=== PATIENT | male | born 1995 | race African-American/Black ===

== ENCOUNTER 2017-01-16 15:29 | Emergency (ER) | payer SELFPAY ==
[~2017-01-16] VITALS: Ht 175.3 cm; Wt 92.6 kg
[2017-01-16 16:22] LABS: HEMATOCRIT 47.7 % (38.0-50.0); MCH 27.8 PG (29.0-34.0); MCHC 33.3 G/DL (30.0-36.0); MCV 83.4 FL (86-99); MEAN PLAT.VOLUME 9.5 uM^3 (9.0-12.4); PLATELET COUNT 255 K/uL (156-360); RBC DIS.WIDTH-CV 12.1 % (11.8-14.6); RBC DIS.WIDTH-SD 36.6 % (39-53); RED BLOOD COUNT 5.72 M/uL (4.00-5.50); WHITE BLOOD COUNT 7.1 K/uL (4.1-10.2)
[2017-01-16 16:32] LABS: CHLORIDE 110 mEq/L (99-109); POTASSIUM 4.2 mEq/L (3.7-5.4); SODIUM 140 mEq/L (136-147)
[2017-01-16 16:33] LABS: D-DIMER ELISA 0.46 mg/L FEU (< 0.57)
[2017-01-16 16:34] LABS: GLUCOSE 89 mg/dL (70-99)
[2017-01-16 16:35] LABS: ANION GAP 9 MEQ/L (2-14)
[2017-01-16 16:38] LABS: GFR ESTIMATE (CALCULATED) > 59 mL/min/
[2017-01-16 16:39] LABS: UREA NITROGEN (BUN) 11 mg/dL (9-23)
[2017-01-16 16:42] LABS: TROP-I INTERPRETATION NEGATIVE; TROPONIN-I < 0.01 ng/mL (0.0-0.30)
[2017-01-16 18:38] LABS: TROP-I INTERPRETATION NEGATIVE; TROPONIN-I < 0.01 ng/mL (0.0-0.30)
[2017-01-16] MEDS ORDERED: PROAIR RESPICL90 MCG IH (18:50)
[2017-01-16 18:56] VITALS: BP 132/91
== END 2017-01-16 18:57 | disposition home or self-care (01) ==
LOC: EME 15:29
PROVIDERS: Nurse Practitioner Family
DX: R07.89 Other chest pain (principal); J45.909 Unspecified asthma, uncomplicated; F17.200 Nicotine dependence, unspecified, uncomplicated
CPT/HCPCS: 71020; 80048; 84484; 85027; 85379; 93005; 99281; 99284

== ENCOUNTER 2017-03-23 21:14 | Emergency (ER) | payer OTHER ==
[~2017-03-23] VITALS: Ht 177.8 cm; Wt 94.6 kg
[~2017-03-23 21:14] MED LIST: PROAIR RESPICL90 MCG IH
[2017-03-23 21:51] LABS: HEMATOCRIT 45.3 % (38.0-50.0); MCH 27.4 PG (29.0-34.0); MCHC 32.7 G/DL (30.0-36.0); MCV 83.7 FL (86-99); MEAN PLAT.VOLUME 9.3 uM^3 (9.0-12.4); PLATELET COUNT 312 K/uL (156-360); RBC DIS.WIDTH-CV 12.3 % (11.8-14.6); RBC DIS.WIDTH-SD 37.1 % (39-53); RED BLOOD COUNT 5.41 M/uL (4.00-5.50); WHITE BLOOD COUNT 5.5 K/uL (4.1-10.2)
[2017-03-23 22:06] LABS: CHLORIDE 107 mEq/L (99-109); POTASSIUM 4.3 mEq/L (3.7-5.4); SODIUM 144 mEq/L (136-147)
[2017-03-23 22:08] LABS: GLUCOSE 99 mg/dL (70-99)
[2017-03-23 22:09] LABS: ANION GAP 10 MEQ/L (2-14)
[2017-03-23 22:12] LABS: GFR ESTIMATE (CALCULATED) > 59 mL/min/
[2017-03-23 22:13] LABS: UREA NITROGEN (BUN) 12 mg/dL (9-23)
[2017-03-23 22:28] LABS: ADD MIUA? YES; BILIRUBIN NEGATIVE; BLOOD NEGATIVE; COLOR YELLOW ((YELLOW)); GLUCOSE (STRIP) NEGATIVE; KETONES NEGATIVE; LEUKOCYTES NEGATIVE; NITRITE NEGATIVE; PROTEIN (STRIP) NEGATIVE; SPECIFIC GRAVITY 1.021 (1.000-1.030); UROBILINOGEN 0.2 MG/DL (0.2-1.0)
[2017-03-23 22:35] LABS: BACTERIA RARE /HPF; EPITHELIAL CELLS RARE /HPF; MUCUS TRACE /LPF; RED BLOOD CELLS NONE SEEN /HPF (0-5); UCUL ADDED? NO; WHITE BLOOD CELLS NONE SEEN /HPF (0-5)
[2017-03-23 22:39] LABS: TOTAL BILIRUBIN 0.2 mg/dL (0.0-1.0)
[2017-03-23 22:40] LABS: ALKALINE PHOSPHATASE 59 IU/L (3-129)
[2017-03-23 22:42] LABS: DIRECT BILIRUBIN 0.1 mg/dL (0.0-0.3)
[2017-03-23 22:43] LABS: LIPASE 34 U/L (1.0-51.0)
[2017-03-23] MEDS ORDERED: BENTYL20 MG PO (23:05)
[2017-03-23] MEDS ORDERED: ZOFRAN8 MG PO (23:05)
[2017-03-23 23:10] VITALS: BP 127/86
== END 2017-03-23 23:06 | disposition home or self-care (01) ==
LOC: EME 21:14
DX: R11.2 Nausea with vomiting, unspecified (principal); B34.9 Viral infection, unspecified; R51 Headache; F17.200 Nicotine dependence, unspecified, uncomplicated
CPT/HCPCS: 80048; 80076; 81003; 83690; 85027; 99281; 99284

== ENCOUNTER 2017-07-06 11:00 | Emergency (ER) | payer SELFPAY ==
[~2017-07-06] VITALS: Ht 170.2 cm; Wt 99.7 kg
[~2017-07-06 11:00] MED LIST changes: +BENTYL20 MG PO; +ZOFRAN8 MG PO
[2017-07-06] MEDS ORDERED: AMOXICILLIN500 MG PO (15:42)
[2017-07-06] MEDS ORDERED: PREDNISONE50 MG PO (15:42)
[2017-07-06 15:50] VITALS: BP 115/74
== END 2017-07-06 15:55 | disposition home or self-care (01) ==
LOC: EME 11:00
DX: T78.1XXA Other adverse food reactions, not elsewhere classified, initial encounter (principal); J02.9 Acute pharyngitis, unspecified; Z91.013 Allergy to seafood
CPT/HCPCS: 70360; 87651 90; 99281; 99284; J7512